=== PATIENT | female | born 1960 | race Caucasian/White ===

== ENCOUNTER → 2017-01-15 | Outpatient (CLI) | payer MEDICARE, OTHER ==
--- NOTE | 2017-01-15 16:36 | MR ---
EXAMINATION TYPE: MR brain wo con DATE OF EXAM: 01/15/2017 4:14 PM COMPARISON: NONE HISTORY: Migraine headaches per order. TECHNIQUE: Multiplanar, multisequence imaging of the brain and brainstem is performed without IV cont rast. FINDINGS: Diffusion weighted images demonstrate no evidence of a recent infarct or other diffusion abnormality. There is no worrisome extra-axial fluid collection. The ventricular system and cisternal spaces are normal in size and appearance. The brain volume is age appropriate. There are some scattered foci of T2 hyperintensity seen throughout the deep and periventricular white matter. Approximately 15 scatte red are present. Largest in left parietal deep white matter measures 7 mm in long axis. Lesions are n onspecific in appearance and distribution. Midline structures demonstrate normal morphology. The craniocervical junction appears within normal limits. Normal vascular flow voids are present. Mild mucosal thickening in the frontal sinuses as wel l as anterior ethmoid sinuses is present. The globes are intact bilaterally. IMPRESSION: Mild nonspecific white matter changes may be on basis of ischemic change related to migra ine headaches, differential includes product of chronic small vessel ischemic change in patient of th is age. Other etiologies are not excluded
== END | disposition home or self-care (01) ==
LOC: RADMRIMAIN 15:23
PROVIDERS: ATTEND Psychiatry & Neurology Neurology
DX: G43.009 Migraine without aura, not intractable, without status migrainosus (principal); R90.82 White matter disease, unspecified
CPT/HCPCS: 70551

== ENCOUNTER → 2017-01-30 | Outpatient (CLI) | payer MEDICARE, OTHER ==
--- NOTE | 2017-01-31 11:37 | MM ---
Reason for exam: screening (asymptomatic). Last mammogram was performed 1 year and 1 month ago. History: Taking other hormone for 5 months. Physical Findings: A clinical breast exam by your physician is recommended on an annual basis and results should be correlated with mammographic findings. MG 3D Screening Mammo W/Cad Bilateral CC and MLO view(s) were taken. Prior study comparison: January 09, 2016, left breast MG 3d work up w/cad LT. January 02, 2016, bilateral MG screening mammo w CAD. The breast tissue is heterogeneously dense. This may lower the sensitivity of mammography. No significant changes when compared with prior studies. ASSESSMENT: Benign, BI-RAD 2 RECOMMENDATION: Routine screening mammogram of both breasts in 1 year.
== END | disposition home or self-care (01) ==
LOC: RADMAMWWP 13:52
PROVIDERS: ATTEND Family Medicine
DX: Z12.31 Encounter for screening mammogram for malignant neoplasm of breast (principal)
CPT/HCPCS: 77063; G0202

== ENCOUNTER 2017-02-05 16:05 | Emergency (ER) | payer MEDICARE, OTHER ==
[2017-02-05 16:22] VITALS: RESP 16; TEMP 98.4
[2017-02-05] MEDS ORDERED: HYDROcodone/APAP 5-325MG 1 EACH TAB PO STA (16:56)
--- NOTE | 2017-02-05 17:06 | ED ---
General Adult HPI - General Chief complaint: Extremity Injury, Upper Stated complaint: left arm lump x 1 week Time Seen by Provider: 02/05/17 16:45 Source: patient, RN notes reviewed Mode of arrival: ambulatory Limitations: no limitations - History of Present Illness Initial comments: Patient is 56-year-old female presents to the emergency room for evaluation of lump over left arm. Patient states that she noticed a lump forming on her proximal left forearm about a week ago. Patient states today she noticed the lump has moved more towards her upper arm. Patient states that the area is painful to palpate. Patient denies recent blood work taken from the area or recent IV placed. Patient denies IV drug use. Patient denies any redness or heat from the area. Patient denies any injuries to the area. Patient denies any recent infections of her left arm. Patient denies numbness or tingling in her fingers. Patient states the pain is worse when she palpates the area or moves her elbow. Patient denies fevers or chills. Patient denies history of abscesses. Patient said she has a history fibromyalgia. Patient states she takes Percocet at home with no relief of symptoms. - Related Data Home Medications Medication Instructions Recorded Confirmed LORazepam [Ativan] 0.5 mg PO DAILY PRN 08/08/14 02/05/17 Spironolact/Hydrochlorothiazid 1 tab PO DAILY 08/29/14 02/05/17 [Aldactazide 25-25 Tablet] Cholecalciferol [Vitamin D3] 5,000 unit PO DAILY@1500 02/05/17 02/05/17 Evening [place] Oil 500 mg PO DAILY@1500 02/05/17 02/05/17 Febuxostat [Uloric] 40 mg PO DAILY 02/05/17 02/05/17 Ferrous Sulfate [Feosol] 325 mg PO DAILY@1500 02/05/17 02/05/17 Ibuprofen [Motrin] 600 mg PO TID PRN 02/05/17 02/05/17 Topiramate [Topamax] 75 mg PO HS 02/05/17 02/05/17 diphenhydrAMINE HCL [Benadryl] 25 - 50 mg PO QID PRN 02/05/17 02/05/17 oxyCODONE-APAP 10-325MG [Percocet 1 tab PO QID PRN 02/05/17 02/05/17 10-325 mg] rOPINIRole HCL [Requip] 0.5 mg PO HS 02/05/17 02/05/17 Allergies Allergy/AdvReac Type Severity Reaction Status Date / Time celecoxib [From Celebrex] Allergy Unknown Verified 02/05/17 17:07 rofecoxib [From Vioxx] Allergy Unknown Verified 02/05/17 17:07 Review of Systems ROS Statement: Those systems with pertinent positive or pertinent negative responses have been documented in the HPI. ROS Other: All systems not noted in ROS Statement are negative. Past Medical History Past Medical History: Fibromyalgia, Osteoarthritis (OA), Thyroid Disorder Additional Past Medical History / Comment(s): gout History of Any Multi-Drug Resistant Organisms: None Reported Past Surgical History: Orthopedic Surgery, Tubal Ligation Past Psychological History: No Psychological Hx Reported Smoking Status: Former smoker Past Alcohol Use History: None Reported Past Drug Use History: None Reported General Exam - General Exam Comments Initial Comments: Sitting in exam room in no acute distress. Limitations: no limitations General appearance: alert, in no apparent distress Head exam: Present: atraumatic, normocephalic, normal inspection Eye exam: Present: normal appearance ENT exam: Present: normal exam Neck exam: Present: normal inspection Respiratory exam: Present: normal lung sounds bilaterally. Absent: respiratory distress Cardiovascular Exam: Present: regular rate, normal rhythm, normal heart sounds Extremities exam: Present: normal inspection Left Upper Arm exam: Present: normal inspection Elbow exam: Present: normal inspection, full ROM, tenderness (Tenderness over the medial epicondyl) Forearm Wrist exam: Present: normal inspection Neuro motor exam: Present: wrist extension intact, thumb opposition intact, thumb IP flexion intact, thumb adduction intact, fingers 2-5 abduction intact Vascular: Present: normal capillary refill (Capillary refill less than 2 seconds ), radial pulse (2+), ulnar pulse (2+) Back exam: Present: normal inspection Neurological exam: Present: alert, oriented X3, CN II-XII intact, normal gait Psychiatric exam: Present: normal affect, normal mood Skin exam: Present: warm, dry, intact, normal color. Absent: rash Course Vital Signs 02/05/17 02/05/17 16:19 19:04 Temperature 98.4 F Pulse Rate 74 60 Respiratory 16 16 Rate Blood Pressure 134/67 127/75 O2 Sat by Pulse 99 99 Oximetry Medical Decision Making - Medical Decision Making Patient is a 56-year-old female presents to the emergency room for evaluation of left arm pain and swelling. Ultrasound ordered to rule out abscess. No findings noted. Patient also evaluated by Dr. Medrano. Patient's symptoms most likely related to tendinitis. Advised patient to continue taking her home pain medications and to follow-up with her primary care provider if symptoms aren't improving in 7-10 days. Patient states she understands everything that was discussed with her. Return parameters discussed. - Radiology Data Radiology results: report reviewed, image reviewed Disposition Clinical Impression: Left elbow tendinitis Disposition: HOME SELF-CARE Condition: Good Instructions: Tendinitis (ED) Additional Instructions: Ice on and off for 10-15 minutes for the next 24-48 hours. Take at home pain medications as needed. Please follow up with primary care provider for reevaluation if symptoms do not improve in 7-10 days.. If new symptoms develop or symptoms worsen, please return to the ER. Referrals: Fredo Pimentel MD [Primary Care Provider] - 1-2 days Time of Disposition: 19:26
--- NOTE | 2017-02-05 17:39 | US ---
EXAMINATION TYPE: US extremity nonvasc mass LT DATE OF EXAM: 02/05/2017 5:30 PM COMPARISON: NONE CLINICAL HISTORY: Patient states she can feel a palpable lump just superior to her antecubital fossa on the left arm. She noticed it x1 week ago today and it feels like it is moving up her arm. The area is painful No abnormality visualized on today's exam at the area of the patient's concern IMPRESSION: No evidence for solid or cystic mass.
[2017-02-05 19:06] VITALS: BP 127/75; PULSE 60
== END 2017-02-05 19:38 | disposition home or self-care (01) ==
LOC: EC 16:05
DX: M77.9 Enthesopathy, unspecified (principal); M79.7 Fibromyalgia; M19.90 Unspecified osteoarthritis, unspecified site; M10.9 Gout, unspecified; Z87.891 Personal history of nicotine dependence; Z79.899 Other long term (current) drug therapy; Z88.8 Allergy status to other drugs, medicaments and biological substances
CPT/HCPCS: 99283

== ENCOUNTER → 2018-01-18 | Outpatient (CLI) | payer MEDICARE, OTHER ==
--- NOTE | 2018-01-19 13:54 | MR ---
EXAMINATION TYPE: MR brain wo con DATE OF EXAM: 01/18/2018 COMPARISON: 01/15/2017 HISTORY: Migraine without aura, not intractable TECHNIQUE: Multiplanar, multisequence images of the brain and brainstem is performed without intravenous contras t. FINDINGS: Diffusion weighted images demonstrate no evidence of a recent infarct or other diffusion ab normality. There is been minimal increase in number of white matter foci, approximately 22 as oppose d to 15 on the prior exam of 2017. The largest white matter change in the left parietal lobe again me asures 7 mm. There is no extra-axial fluid collection or significant white matter signal abnormality. The ventricular system and cisternal spaces are normal in size and appearance. The brain volume is age appropriate. Midline structures demonstrate normal morphology. The craniocervical junction appears within normal limits. The dural venous sinuses appear patent. The globes are intact. Extraocular muscles are symmet donny. Again there is mild paranasal sinus mucosal thickening with mild mucosal thickening in the front al sinus and ethmoid sinuses. Remaining paranasal sinuses and mastoid air cells are well aerated. Matthew or intracranial flow voids are maintained. IMPRESSION: 1. Mild increase in number of nonspecific white matter foci. Again these could relate to chronic micr oangiopathy, migraine headaches, vasculitis or less likely demyelinating disease. 2. Persistent mild paranasal sinus disease.
== END | disposition home or self-care (01) ==
LOC: RADMRIMAIN 13:51
PROVIDERS: ATTEND Psychiatry & Neurology Neurology
DX: G43.909 Migraine, unspecified, not intractable, without status migrainosus (principal); R90.82 White matter disease, unspecified
CPT/HCPCS: 70551

== ENCOUNTER → 2018-02-24 | Outpatient (CLI) | payer MEDICARE, OTHER ==
--- NOTE | 2018-02-26 08:48 | MM ---
Reason for exam: screening (asymptomatic). Last mammogram was performed 1 year and 1 month ago. History: Taking other hormone for 5 months. Physical Findings: A clinical breast exam by your physician is recommended on an annual basis and results should be correlated with mammographic findings. MG 3D Screening Mammo W/Cad Bilateral CC and MLO view(s) were taken. Prior study comparison: January 30, 2017, bilateral MG 3d screening mammo w/cad. January 09, 2016, left breast MG 3d work up w/cad LT. The breast tissue is heterogeneously dense. This may lower the sensitivity of mammography. No significant changes when compared with prior studies. ASSESSMENT: Benign, BI-RAD 2 RECOMMENDATION: Routine screening mammogram of both breasts in 1 year.
== END | disposition home or self-care (01) ==
LOC: RADMAMWWP 13:58
PROVIDERS: ATTEND Family Medicine
DX: Z12.31 Encounter for screening mammogram for malignant neoplasm of breast (principal)
CPT/HCPCS: 77063; 77067

== ENCOUNTER 2018-03-04 14:53 | Emergency (ER) | payer MEDICARE, OTHER ==
[2018-03-04 15:13] VITALS: RESP 18
--- NOTE | 2018-03-04 17:48 | ED ---
Fall HPI - General Chief Complaint: Fall Stated Complaint: fall Time Seen by Provider: 03/04/18 17:02 Source: patient Mode of arrival: ambulatory - History of Present Illness Initial Comments: This is a pleasant 57-year-old female presents emergency department complaining of multiple body aches and painful areas. Patient states she fell at home as ago and injured her right thigh area. Patient states she also has somehow inflamed. Neck: Neck. Patient suffers from chronic neck and low back pain. Patient denies any head injury or loss of consciousness. Patient does have widespread osteoarthritis and chronic pain. Patient complaining of right hand pain as well. Patient is able to ambulate without difficulty. Patient denies any chest pain or shortness of breath. No fever or chills, abdominal pain. No problems with vomiting urination. No symptoms of saddle anesthesia. No night sweats or fevers. Patient also complaining of generalized body aches and myalgias - Related Data Home Medications Medication Instructions Recorded Confirmed LORazepam [Ativan] 0.5 mg PO DAILY PRN 08/08/14 03/04/18 Spironolact/Hydrochlorothiazid 1 tab PO DAILY 08/29/14 03/04/18 [Aldactazide 25-25 Tablet] Cholecalciferol [Vitamin D3] 5,000 unit PO DAILY 02/05/17 03/04/18 Febuxostat [Uloric] 40 mg PO DAILY 02/05/17 03/04/18 Ibuprofen [Motrin] 600 mg PO TID PRN 02/05/17 03/04/18 Topiramate [Topamax] 75 mg PO HS 02/05/17 03/04/18 diphenhydrAMINE HCL [Benadryl] 25 - 50 mg PO QID PRN 02/05/17 03/04/18 oxyCODONE-APAP 10-325MG [Percocet 1 tab PO QID PRN 02/05/17 03/04/18 10-325 mg] rOPINIRole HCL [Requip] 0.5 mg PO HS 02/05/17 03/04/18 Iron 160mg Sr 160 mg PO DAILY 03/04/18 03/04/18 Levothyroxine Sodium [Synthroid] 88 mcg PO DAILY 03/04/18 03/04/18 Previous Rx's Medication Instructions Recorded methylPREDNISolone Dose Pack 4 mg PO DIRECTED #21 package 03/04/18 [Medrol Dose Pack] Allergies Allergy/AdvReac Type Severity Reaction Status Date / Time celecoxib [From Celebrex] Allergy Unknown Verified 03/04/18 17:16 rofecoxib [From Vioxx] Allergy Unknown Verified 03/04/18 17:16 Review of Systems ROS Statement: Those systems with pertinent positive or pertinent negative responses have been documented in the HPI. ROS Other: All systems not noted in ROS Statement are negative. Past Medical History Past Medical History: Fibromyalgia, Osteoarthritis (OA), Thyroid Disorder Additional Past Medical History / Comment(s): gout History of Any Multi-Drug Resistant Organisms: None Reported Past Surgical History: Orthopedic Surgery, Tubal Ligation Past Psychological History: No Psychological Hx Reported Smoking Status: Former smoker Past Alcohol Use History: None Reported Past Drug Use History: None Reported Additional History: Reviewed General Exam - General Exam Comments Initial Comments: Healthy-appearing 57-year-old female in no significant distress Limitations: no limitations General appearance: alert, in no apparent distress Eye exam: Present: normal appearance, EOMI ENT exam: Present: normal oropharynx Neck exam: Present: normal inspection, tenderness (Mild cervical paraspinal tenderness). Absent: meningismus, lymphadenopathy Respiratory exam: Present: normal lung sounds bilaterally. Absent: respiratory distress, wheezes, rales, rhonchi, stridor Cardiovascular Exam: Present: regular rate, normal rhythm, normal heart sounds. Absent: systolic murmur, diastolic murmur, rubs, gallop, clicks GI/Abdominal exam: Present: soft, normal bowel sounds. Absent: distended, tenderness, guarding, rebound, rigid Extremities exam: Present: full ROM, tenderness, normal capillary refill, other (Patient has a small area of bruising to the lateral aspect right thigh. No lower leg edema. Distal pulses are intact. No pedal edema). Absent: normal inspection Back exam: Present: normal inspection Neurological exam: Present: alert, oriented X3, CN II-XII intact Psychiatric exam: Present: normal affect, normal mood Skin exam: Present: warm, dry, intact, normal color. Absent: rash Course Vital Signs 03/04/18 15:12 Temperature 98.0 F Pulse Rate 77 Respiratory 18 Rate Blood Pressure 130/70 O2 Sat by Pulse 99 Oximetry Medical Decision Making - Medical Decision Making This patient fell 2 days ago at home. Patient has no evidence of acute fracture on plain film x-rays of the pelvis, right hand, and cervical spine as read by radiology. Patient able to and really without difficulty. Patient is on pain medications. I will give the patient a Medrol Dosepak as the patient appears to have multiple joint arthralgia. Patient will need to follow-up with her regular physician. Patient stable.Return to the ER at once if the symptoms worsen or problems or difficulties arise. Return and follow-up parameters discussed - Lab Data Result diagrams: 03/04/18 18:17 03/04/18 18:17 Lab Results 03/04/18 03/04/18 Range/Units 18:17 18:17 WBC 9.3 (3.8-10.6) k/uL RBC 5.06 (3.80-5.40) m/uL Hgb 14.5 (11.4-16.0) gm/dL Hct 44.8 (34.0-46.0) % MCV 88.4 (80.0-100.0) fL MCH 28.6 (25.0-35.0) pg MCHC 32.3 (31.0-37.0) g/dL RDW 12.9 (11.5-15.5) % Plt Count 344 (150-450) k/uL Neutrophils % 63 % Lymphocytes % 26 % Monocytes % 4 % Eosinophils % 5 % Basophils % 1 % Neutrophils # 5.9 (1.3-7.7) k/uL Lymphocytes # 2.5 (1.0-4.8) k/uL Monocytes # 0.4 (0-1.0) k/uL Eosinophils # 0.5 (0-0.7) k/uL Basophils # 0.1 (0-0.2) k/uL Sodium 142 (137-145) mmol/L Potassium 4.0 (3.5-5.1) mmol/L Chloride 104 (98-107) mmol/L Carbon Dioxide 26 (22-30) mmol/L Anion Gap 12 mmol/L BUN 14 (7-17) mg/dL Creatinine 0.83 (0.52-1.04) mg/dL Est GFR (CKD-EPI)AfAm >90 (>60 ml/min/1.73 sqM) Est GFR (CKD-EPI)NonAf 80 (>60 ml/min/1.73 sqM) Glucose 90 (74-99) mg/dL Calcium 10.1 (8.4-10.2) mg/dL Creatine Kinase 59 (30-135) U/L Disposition Clinical Impression: Contusion of right hand, initial encounter, Contusion of right thigh, initial encounter, Cervical strain, acute, Fall Disposition: HOME SELF-CARE Condition: Good Instructions: Acute Neck Pain (ED), Contusion in Adults (ED) Additional Instructions: Return to the ER at once if the symptoms worsen or problems or difficulties arise. Prescriptions: methylPREDNISolone Dose Pack [Medrol Dose Pack] 4 mg PO DIRECTED #21 package Referrals: Fredo Pimentel MD [Primary Care Provider] - 1-2 days Time of Disposition: 19:06
--- NOTE | 2018-03-04 18:28 | XR ---
EXAMINATION TYPE: XR pelvis AP view DATE OF EXAM: 03/04/2018 COMPARISON: NONE HISTORY: Hand pain TECHNIQUE: Single view FINDINGS: Pelvic ring is intact. Proximal femurs and hip joints are intact. Sacroiliac joints appear normal. There are phleboliths in the pelvis. IMPRESSION: Negative pelvis exam.
--- NOTE | 2018-03-04 18:29 | XR ---
EXAMINATION TYPE: XR hand complete RT DATE OF EXAM: 03/04/2018 COMPARISON: NONE HISTORY: Hand pain TECHNIQUE: 3 views FINDINGS: Metacarpals appear intact. I see no fracture nor dislocation. There is mild spurring at the first carpometacarpal joint. There is mild spurring at the DIP joints. There are no erosions. IMPRESSION: Mild osteoarthritic changes. No fracture.
[2018-03-04 18:30] LABS: Basophils # (A) 0.1 k/uL (0-0.2); Basophils % (A) 1 %; Eosinophils # (A) 0.5 k/uL (0-0.7); Eosinophils % (A) 5 %; HCT 44.8 % (34.0-46.0); HGB 14.5 gm/dL (11.4-16.0); Lymphocytes # (A) 2.5 k/uL (1.0-4.8); Lymphocytes % (A) 26 %; MCH 28.6 pg (25.0-35.0); MCHC 32.3 g/dL (31.0-37.0); MCV 88.4 fL (80.0-100.0); Mean Platelet Volume 7.2; Monocytes # (A) 0.4 k/uL (0-1.0); Monocytes % (A) 4 %; Neutrophils # (A) 5.9 k/uL (1.3-7.7); Neutrophils % (A) 63 %; Platelet Count 344 k/uL (150-450); RBC 5.06 m/uL (3.80-5.40); RDW 12.9 % (11.5-15.5); WBC 9.3 k/uL (3.8-10.6)
--- NOTE | 2018-03-04 18:30 | XR ---
EXAMINATION TYPE: XR cervical spine limited DATE OF EXAM: 03/04/2018 COMPARISON: NONE HISTORY: Neck pain TECHNIQUE: 3 views FINDINGS: Vertebra have normal alignment. There is narrowing and spurring at C5-6 C6-7. Posterior jorge ments are intact. Atlantoaxial facet joint is normal. There are no cervical ribs. IMPRESSION: Spondylotic changes at C5-6 C6-7. No fracture seen.
[2018-03-04 18:40] LABS: Anion Gap 12 mmol/L; Blood Urea Nitrogen 14 mg/dL (7-17); Calcium 10.1 mg/dL (8.4-10.2); Carbon Dioxide 26 mmol/L (22-30); Chloride 104 mmol/L (98-107); Creatine Kinase 59 U/L (30-135); Glucose 90 mg/dL (74-99); Sodium 142 mmol/L (137-145)
[2018-03-04 19:35] VITALS: BP 108/66; PULSE 57; TEMP 96.9
== END 2018-03-04 19:45 | disposition home or self-care (01) ==
LOC: EC 14:53
DX: S16.1XXA Strain of muscle, fascia and tendon at neck level, initial encounter (principal); S60.221A Contusion of right hand, initial encounter; S70.11XA Contusion of right thigh, initial encounter; E07.9 Disorder of thyroid, unspecified; Z87.891 Personal history of nicotine dependence; Z79.899 Other long term (current) drug therapy; Z88.6 Allergy status to analgesic agent; Z88.8 Allergy status to other drugs, medicaments and biological substances; W01.0XXA Fall on same level from slipping, tripping and stumbling without subsequent striking against object, initial encounter
CPT/HCPCS: 36415; 72040; 72170; 80048; 82550; 85025; 99283

== ENCOUNTER 2018-04-07 09:28 | Day surgery (SDC) | payer MEDICARE, OTHER ==
[2018-04-04 12:36] VITALS: BMI 29.2
[~2018-04-07 09:28] MED LIST: LACTATED RINGERS 1,000 ML IV SCH
[2018-04-07 10:06] VITALS: TEMP 97.9
[2018-04-07] MEDS ORDERED: PROPOFOL 10 MG/ML 20 ML VIAL IV ONE (10:28)
[2018-04-07] MEDS ORDERED: fentaNYL (PF) 50 MCG/ML 2 ML AMP ONE (10:28)
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
[2018-04-07 10:54] VITALS: RESP 16
[2018-04-07 11:27] VITALS: BP 110/67; PULSE 59
== END 2018-04-07 11:55 | disposition home or self-care (01) ==
LOC: ORWHC2ENDO 09:28
PROVIDERS: ATTEND Surgery
DX: Z12.11 Encounter for screening for malignant neoplasm of colon (principal); D64.9 Anemia, unspecified; E07.9 Disorder of thyroid, unspecified; I10 Essential (primary) hypertension; M10.9 Gout, unspecified; M19.90 Unspecified osteoarthritis, unspecified site; Z87.891 Personal history of nicotine dependence; M79.7 Fibromyalgia; F41.9 Anxiety disorder, unspecified; F32.9 Major depressive disorder, single episode, unspecified; Z79.899 Other long term (current) drug therapy; Z88.6 Allergy status to analgesic agent; Z88.8 Allergy status to other drugs, medicaments and biological substances
CPT/HCPCS: J3010; J2704; G0121

== ENCOUNTER → 2018-04-16 | Outpatient (CLI) | payer MEDICARE, OTHER ==
--- NOTE | 2018-04-16 11:49 | MR ---
EXAMINATION TYPE: MR lumbar spine wo con DATE OF EXAM: 04/16/2018 COMPARISON: 12/08/2014 HISTORY: Intervertebral disc displacement, lumbar TECHNIQUE: Multiplanar, multisequence images of the lumbar spine were acquired. FINDINGS: There is a grade 1 anterolisthesis of L4 on L5. Vertebral body hemangiomas that are T1 hype rintense and T2 hyperintense are seen of S1 and L1. Remainder of the visualized thoracolumbar spine d isplays normal bone marrow signal. Multilevel disc desiccation is seen. Conus medullaris is unremarka ble terminating at the L1-L2 interspace. L1-L2: Minimal disc desiccation. No herniation, protrusion or disc bulging. No canal stenosis is pr esent. Foramina are patent bilaterally. L2-L3: There is a very small broad-based disc bulge without neural foraminal narrowing or spinal tacho l stenosis. Mild disc desiccation is seen. L3-L4: There is a broad-based disc bulge and mild facet arthropathy without spinal canal stenosis or neural foraminal narrowing. L4-L5: There is disc uncovering and a broad-based disc bulge without focality. Very small annular tea r is seen centrally. Very mild neural foraminal narrowing is present bilaterally. No nerve impingemen t. L5-S1: There is a small broad-based disc bulge without focality. No significant neural foraminal narr owing or spinal canal stenosis. IMPRESSION: 1. Mild multilevel degenerative disc disease without focal disc herniation or spinal canal stenosis. There is minimal neural foraminal narrowing at L4-L5 bilaterally. 2. Grade 1 anterolisthesis of L4 on L5 without spinal canal stenosis or bone marrow edema.
== END | disposition home or self-care (01) ==
LOC: RADMRIMAIN 11:01
PROVIDERS: ATTEND Psychiatry & Neurology Neurology
DX: M99.73 Connective tissue and disc stenosis of intervertebral foramina of lumbar region (principal); M43.16 Spondylolisthesis, lumbar region; M51.36 Other intervertebral disc degeneration, lumbar region
CPT/HCPCS: 72148

== ENCOUNTER → 2018-11-11 | Outpatient (CLI) | payer MEDICARE, OTHER ==
--- NOTE | 2018-11-11 22:46 | MR ---
MRI CERVICAL SPINE: CLINICAL HISTORY: Neck pain per order. Headache with neck pain for over 10 years causing pain or weak ness into both arms and fingers per patient. TECHNIQUE: Multiplanar, multisequence imaging of the cervical spine is performed without IV contrast. COMPARISON: Cervical spine x-ray March 04, 2018. FINDINGS: Coronal images show dextroconvex scoliotic positioning centered in the upper to mid thoraci c spine. Sagittal images of the cervical spine show the craniocervical junction to appear within norm al limits. The cervical and upper thoracic spinal cord is normal in course, caliber, and signal. The re is grade 1 retrolisthesis of C5 on C6 and C6 on C7. There is mild disc space narrowing C5-C6 leve l and moderate disc space narrowing C6-C7 level. Multilevel posterior disc herniation C3-C4 through a nd C7-T1 level are noted on sagittal images. The vertebral body heights are normal. Some heterogeneou s endplate changes C6-C7 level are noted. Axial images at C2-C3 level show tiny left paracentral disc protrusion minimally effacing the anterio r thecal sac axial image 44, bilateral neuroforamina are patent. Axial images at C3-C4 level show posterior spur disc complex effacing anterior thecal sac with uncove rtebral facet show changes contributing to mild to moderate right-sided neural foraminal narrowing. L eft-sided neural foramen is patent. Axial images at C4-C5 level shows broad-based posterior disc protrusion and uncovertebral facet degen erative changes bilaterally, there is effacement of the anterior thecal sac with mild to moderate lef t-sided neural foraminal narrowing. Right-sided neural foramen is patent. Axial images at C5-C6 level show spondylolisthesis with broad-based left paracentral/foraminal spur d isc complex, there is effacement of the anterior thecal sac with advanced left and mild to moderate r ight-sided neural foraminal narrowing. Axial images at the C6-C7 level shows spondylolisthesis with broad-based posterior disc protrusion, t here is effacement of anterior thecal sac, there is advanced right and moderate to advanced left-side d neural foraminal narrowing noted. Axial images at the C7-T1 level show broad disc protrusion mildly facing anterior thecal sac, bilater al neural foramina are patent. IMPRESSION: Multilevel degenerative changes in the cervical spine most prominent at C5-C6 and C6-C7 l evel as detailed above.
== END | disposition home or self-care (01) ==
LOC: RADMRIMAIN 14:48
PROVIDERS: ATTEND Psychiatry & Neurology Neurology
DX: M47.812 Spondylosis without myelopathy or radiculopathy, cervical region (principal)
CPT/HCPCS: 72141

== ENCOUNTER 2019-02-23 19:09 | Emergency (ER) | payer MEDICARE, OTHER ==
[2019-02-23 19:20] VITALS: TEMP 98.3
[2019-02-23 19:41] LABS: Appearance,Urine Clear (Clear); Bilirubin,Urine Negative (Negative); Blood,Urine Negative (Negative); Color,Urine Light Yellow; Glucose,Urine (UA) Negative (Negative); Ketones,Urine Negative (Negative); Leukocyte Esterase,Urine Negative (Negative); Nitrite,Urine Negative (Negative); PH, Urine 6.5 (5.0-8.0); Protein,Urine Negative (Negative); Specific Gravity,Urine 1.003 (1.001-1.035); Urobilinogen,Urine <2.0 mg/dL (<2.0)
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
[2019-02-23 20:54] LABS: ALT 46 U/L (9-52); AST 27 U/L (14-36); Albumin 4.4 g/dL (3.5-5.0); Alkaline Phosphatase 73 U/L (38-126); Amylase 81 U/L (30-110); Anion Gap 11 mmol/L; Blood Urea Nitrogen 14 mg/dL (7-17); Calcium 9.9 mg/dL (8.4-10.2); Carbon Dioxide 23 mmol/L (22-30); Chloride 107 mmol/L (98-107); Glucose 78 mg/dL (74-99); Lipase 72 U/L (23-300); Potassium 3.5 mmol/L (3.5-5.1); Sodium 141 mmol/L (137-145); Total Bilirubin 0.6 mg/dL (0.2-1.3); Total Protein 7.4 g/dL (6.3-8.2)
[2019-02-23 21:18] LABS: Basophils # (A) 0.1 k/uL (0-0.2); Basophils % (A) 1 %; Eosinophils # (A) 0.3 k/uL (0-0.7); Eosinophils % (A) 3 %; HCT 42.6 % (34.0-46.0); HGB 14.1 gm/dL (11.4-16.0); Lymphocytes # (A) 2.3 k/uL (1.0-4.8); Lymphocytes % (A) 19 %; MCH 29.4 pg (25.0-35.0); MCHC 33.1 g/dL (31.0-37.0); MCV 88.8 fL (80.0-100.0); Mean Platelet Volume 7.4; Monocytes # (A) 0.5 k/uL (0-1.0); Monocytes % (A) 4 %; Neutrophils # (A) 8.5 k/uL (1.3-7.7); Neutrophils % (A) 72 %; Platelet Count 468 k/uL (150-450); RBC 4.79 m/uL (3.80-5.40); RDW 13.8 % (11.5-15.5); WBC 11.8 k/uL (3.8-10.6)
--- NOTE | 2019-02-23 21:40 | US ---
EXAMINATION TYPE: US gallbladder DATE OF EXAM: 02/23/2019 COMPARISON: NONE CLINICAL HISTORY: Pain. RUQ pain EXAM MEASUREMENTS: Liver Length: 17.4 cm Gallbladder Wall: 0.3 cm CBD: 0.4 cm Right Kidney: 10.1 x 3.3 x 4.5 cm Pancreas: Tail obscured by overlying bowel gas Liver: wnl Gallbladder: wnl Evidence for sonographic Christine's sign: No CBD: wnl Right Kidney: wnl Heterogeneous hyperechoic liver is seen. Evaluation for focal masses is suboptimal due to heterogenei ty. Gallbladder is seen without shadowing mobile gallstones. Visualized pancreas is slightly heteroge neous. Portions are suboptimally evaluated due to shadowing from overlying bowel gas. IMPRESSION: Suspect diffuse fatty infiltration of liver. No shadowing mobile gallstones or ultrasonog raphic evidence for acute cholecystitis.
--- NOTE | 2019-02-23 21:43 | XR ---
EXAMINATION TYPE: XR KUB DATE OF EXAM: 02/23/2019 9:29 PM CLINICAL HISTORY: Right upper quadrant pain. TECHNIQUE: Two Upright KUB images of the abdomen are obtained. COMPARISON: None. FINDINGS: Scattered gas is seen in non-distended stomach and small bowel loops. Gas and fecal materia l is seen in non-distended colon. There is left-sided pelvic phlebolith. Kfdh-gv-mcehhafm axial joint space loss both hips is present. No pneumoperitoneum is seen. IMPRESSION: Overall nonobstructive bowel gas pattern.
[2019-02-23] MEDS ORDERED: DICYCLOMINE 20 MG TAB PO STA (22:19)
[2019-02-23] MEDS ORDERED: PEG 3350-NA SULF,BICARB,CL/KCL 4,000 ML BOTTLE PO ONE (22:30)
[2019-02-23 22:39] VITALS: BP 119/71; PULSE 67; RESP 16
== END 2019-02-23 22:40 | disposition home or self-care (01) ==
LOC: EC 19:09
DX: R10.11 Right upper quadrant pain (principal); R11.0 Nausea; M54.9 Dorsalgia, unspecified; M25.511 Pain in right shoulder; M79.7 Fibromyalgia; M10.9 Gout, unspecified; E07.9 Disorder of thyroid, unspecified; D64.9 Anemia, unspecified; Z87.891 Personal history of nicotine dependence; Z88.6 Allergy status to analgesic agent; Z88.8 Allergy status to other drugs, medicaments and biological substances; Z91.011 Allergy to milk products; Z91.018 Allergy to other foods; Z79.890 Hormone replacement therapy; Z79.899 Other long term (current) drug therapy; Z98.890 Other specified postprocedural states
CPT/HCPCS: 36415; 74018; 76705; 80053; 81003; 82150; 83690; 85025; 99284

== ENCOUNTER → 2019-03-03 | Outpatient (CLI) | payer MEDICARE, OTHER ==
--- NOTE | 2019-03-04 09:32 | NM ---
EXAMINATION TYPE: NM hepatobiliary w CCK DATE OF EXAM: 03/03/2019 COMPARISON: 02/23/2019 gallbladder ultrasound HISTORY: Right upper quadrant pain and nausea TECHNIQUE: After the intravenous administration of 5 mCi Tc 99m Mebrofenin hepatobiliary scintigraphy is performed. Immediate images post injection. FINDINGS: There is satisfactory initial accumulation of tracer by the liver. The gallbladder is visualized wit hin 14 minutes. The small bowel activity is noted within 8 minutes. At one hour CCK was administere d, patient was injected with 1.7 mcg of Kinevac, and gallbladder ejection fraction is calculated at 9 7 %, elevated. Therefore there is no scintigraphic evidence of cystic or common bile duct obstructio n to suggest acute cholecystitis or gallbladder dyskinesia. IMPRESSION: 1. No scintigraphic evidence of acute or chronic cholecystitis. 2. Biliary hyperkinesia with abnormally elevated ejection fraction of 97%.
== END | disposition home or self-care (01) ==
LOC: RADNMMAIN 14:49
PROVIDERS: ATTEND Family Medicine
DX: K82.8 Other specified diseases of gallbladder (principal); R10.11 Right upper quadrant pain; Z88.1 Allergy status to other antibiotic agents; Z88.6 Allergy status to analgesic agent; Z88.8 Allergy status to other drugs, medicaments and biological substances
CPT/HCPCS: 78227; A9537; J2805

== ENCOUNTER → 2019-03-24 | Outpatient (CLI) | payer MEDICARE, OTHER ==
--- NOTE | 2019-03-25 12:16 | MM ---
Reason for exam: screening (asymptomatic). Last mammogram was performed 1 year and 1 month ago. History: Patient is postmenopausal. Taking other hormone for 5 months. Physical Findings: A clinical breast exam by your physician is recommended on an annual basis and results should be correlated with mammographic findings. MG 3D Screening Mammo W/Cad Bilateral CC and MLO view(s) were taken. Prior study comparison: February 24, 2018, bilateral MG 3d screening mammo w/cad. January 30, 2017, bilateral MG 3d screening mammo w/cad. The breast tissue is heterogeneously dense. This may lower the sensitivity of mammography. Increasing nodule upper inner left breast middle third position. This finding is changed when compared with previous exams. ASSESSMENT: Incomplete: need additional imaging evaluation, BI-RAD 0 RECOMMENDATION: Special view mammogram of the left breast. If lesion persists on supplemental views, image directed ultrasound is recommended. [facility] will attempt to contact patient to return for supplemental views and ultrasound if indicated.
== END ==
LOC: RADMAMWWP 15:07
PROVIDERS: ATTEND Family Medicine
DX: Z12.31 Encounter for screening mammogram for malignant neoplasm of breast (principal)
CPT/HCPCS: 77063; 77067

== ENCOUNTER → 2019-03-27 | Outpatient (CLI) | payer MEDICARE, OTHER ==
--- NOTE | 2019-03-30 08:02 | MM ---
Reason for exam: additional evaluation requested from abnormal screening. Last mammogram was performed less than 1 month ago. History: Patient is postmenopausal. Taking other hormone for 5 months. Physical Findings: Nurse did not find any significant physical abnormalities on exam. MG 3D Work Up W/Cad LT Spot compression CC, spot compression MLO, and LM view(s) were taken of the left breast. Prior study comparison: March 24, 2019, bilateral MG 3d screening mammo w/cad. February 24, 2018, bilateral MG 3d screening mammo w/cad. The breast tissue is heterogeneously dense. This may lower the sensitivity of mammography. There is no discrete abnormality. These results were verbally communicated with the patient and result sheet given to the patient on 03/27/19. ASSESSMENT: Probably benign, BI-RAD 3 RECOMMENDATION: Follow-up diagnostic mammogram of the left breast in 6 months.
== END | disposition home or self-care (01) ==
LOC: RADMAMWWP 15:03
PROVIDERS: ATTEND Family Medicine
DX: R92.8 Other abnormal and inconclusive findings on diagnostic imaging of breast (principal)
CPT/HCPCS: 77065; G0279; 77061

== ENCOUNTER 2019-04-09 11:53 | Day surgery (SDC) | payer MEDICARE, OTHER ==
[2019-04-06 11:45] VITALS: BMI 31.2
[~2019-04-09 11:53] MED LIST changes: +DEXAMETHASONE SOD PHOSPHATE 10 MG/ML 1 ML VIAL IV ONE; +HEPARIN SODIUM,PORCINE 5,000 UNIT/ML 1 ML VIAL SQ ONE; +LIDOCAINE 1% 20 ML VIAL (10MG/ML) FOR IV START INTRADERMA PRN; +ONDANSETRON 4 MG/2 ML VIAL IVP ONE; +SCOPOLAMINE 1.5MG/72HR PATCH TRANSDERM ONE; +ceFAZolin IN SWFI 2 GM/20 ML SYRINGE IVP ONE
[2019-04-09] MEDS ORDERED: PHENYLEPHRINE-0.9% NACL SYG 1 MG/10 ML SYRINGE ONE (12:57)
[2019-04-09] MEDS ORDERED: fentaNYL (PF) 50 MCG/ML 2 ML AMP ONE (12:57)
[2019-04-09] MEDS ORDERED: NEOSTIGMINE 1 MG/ML 10 ML VIAL ONE (12:57)
[2019-04-09] MEDS ORDERED: KETOROLAC 30 MG/ML 1 ML VIAL ONE (12:57)
[2019-04-09] MEDS ORDERED: HYDROmorphone (PF) 1 MG/ML ONE (12:57)
[2019-04-09] MEDS ORDERED: GLYCOPYRROLATE 0.2 MG/ML 2 ML VIAL ONE (12:57)
[2019-04-09] MEDS ORDERED: ROCURONIUM BROMIDE 10 MG/ML 10 ML VIAL IV ONE (12:57)
[2019-04-09] MEDS ORDERED: MIDAZOLAM 2 MG/2 ML VIAL ONE (12:57)
[2019-04-09] MEDS ORDERED: LIDOCAINE 1% INJ 10MG/ML (20 ML MDV) ONE (12:57)
[2019-04-09] MEDS ORDERED: SUCCINYLCHOLINE CHLORIDE 100 MG/5 ML SYR IV ONE (12:57)
[2019-04-09] MEDS ORDERED: PROPOFOL 10 MG/ML 20 ML VIAL IV ONE (12:57)
[2019-04-09] MEDS ORDERED: BUPIVACAINE-EPI 0.5%-1:200,000 10 ML VIAL SQ ONE ×2 (13:19)
--- NOTE | 2019-04-09 14:04 | P.OP ---
Date of Procedure: 04/09/19 Preoperative Diagnosis: Biliary colic Postoperative Diagnosis: Biliary colic Procedure(s) Performed: Laparoscopic cholecystectomy Anesthesia: EVARISTO Surgeon: Davion Hyman Pathology: other (Gallbladder and contents) Condition: stable Disposition: same day Indications for Procedure: 58-year-old female presented with right upper quadrant pain and was found to have biliary colic. Secondary to this, plan was made for laparoscopic cholecystectomy. The patient was explained the risks, benefits and alternatives to the procedure and did provide consent prior to attending the operating suite. Operative Findings: Gallbladder with multiple omental adhesions. Description of Procedure: The patient was brought into the endoscopy suite and placed in supine position on the operating table. Sedation was provided by anesthesia and the patient underwent endotracheal intubation. The patient was then prepped and draped in regular sterile fashion. A infraumbilical incision was made dissection was carried to the fascia the fascia was incised and a 11 mm trocar was then placed into the abdomen. Pneumoperitoneum was then administered. The patient was then placed in appropriate positioning. 35 mm ports were placed. One was placed in the subxiphoid location and 2 were placed in the right upper quadrant. The gallbladder was then grasped and was noted to have multiple omental adhesions. These were dissected off. The gallbladder was then retracted appropriately. The infundibulum was then grasped and retracted laterally. The cystic duct and cystic artery then came into view. Dissection was made to skeletonize both the cystic duct and the cystic artery. On the cystic duct, 2 clips were placed proximally one was placed distally and the cystic duct was ligated. On the cystic artery, 2 clips were placed proximally one was placed distally and the cystic artery was ligated. The gallbladder was then dissected from the gallbladder fossa on the liver bed with electrocautery. Hemostasis was maintained. The gallbladder was then placed in an Endo Catch bag and removed from the abdomen. Irrigation was then placed in the right upper quadrant. Hemostasis was noted to be maintained. Pneumoperitoneum was then released and all ports removed from the abdomen. The infraumbilical fascial incision was closed with multiple 0 Vicryl suture. All skin incisions were then closed with 4-0 Vicryl suture. Sterile dressing was applied. The patient was awakened in the operating suite and taken to postanesthesia care unit in stable condition.
[2019-04-09 14:14] VITALS: TEMP 97.1
[2019-04-09] MEDS: HYDROmorphone 0.5 MG/0.5 ML SYRINGE IVP PRN ×2 (14:30→14:35)
[2019-04-09 14:54] VITALS: RESP 16
[2019-04-09] MEDS ORDERED: LACTATED RINGERS 1,000 ML IV ONE (14:55)
[2019-04-09 16:16] VITALS: BP 123/67; PULSE 60
== END 2019-04-09 16:21 | disposition home or self-care (01) ==
LOC: OR 11:53
PROVIDERS: ATTEND Surgery
DX: K81.1 Chronic cholecystitis (principal); K66.0 Peritoneal adhesions (postprocedural) (postinfection); D64.9 Anemia, unspecified; M19.90 Unspecified osteoarthritis, unspecified site; F32.9 Major depressive disorder, single episode, unspecified; K21.9 Gastro-esophageal reflux disease without esophagitis; G43.909 Migraine, unspecified, not intractable, without status migrainosus; E03.9 Hypothyroidism, unspecified; M10.9 Gout, unspecified; Z80.41 Family history of malignant neoplasm of ovary; Z79.890 Hormone replacement therapy; Z79.891 Long term (current) use of opiate analgesic; Z79.1 Long term (current) use of non-steroidal anti-inflammatories (NSAID); Z79.899 Other long term (current) drug therapy; Z91.011 Allergy to milk products; Z88.8 Allergy status to other drugs, medicaments and biological substances; Z91.018 Allergy to other foods
CPT/HCPCS: 81025; 88304; 84132; 47562; J2250; J1644; J1100; J2710; J2405; J2001; J3010; J1885; J1170 ×2; J2370; J0330; J2704; J0690

== ENCOUNTER → 2019-10-07 | Outpatient (CLI) | payer MEDICARE, OTHER ==
--- NOTE | 2019-10-08 07:38 | MM ---
Reason for exam: follow-up at short interval from prior study. Last mammogram was performed 6 months ago. History: Patient is postmenopausal. Taking other hormone for 5 months. Physical Findings: Nurse did not find any significant physical abnormalities on exam. MG 3D Diag Mammo W/Cad LT CC and MLO view(s) were taken of the left breast. Prior study comparison: March 27, 2019, left breast MG 3d work up w/cad LT. March 24, 2019, bilateral MG 3d screening mammo w/cad. February 24, 2018, bilateral MG 3d screening mammo w/cad. The breast tissue is heterogeneously dense. This may lower the sensitivity of mammography. The previously seen abnormality resolves on additional views and appears as fibroglandular tissue compatible with summation. These results were verbally communicated with the patient and result sheet given to the patient on 10/07/19. ASSESSMENT: Benign, BI-RAD 2 RECOMMENDATION: Return to routine screening mammogram schedule for both breasts. Back on schedule.
== END ==
LOC: RADMAMWWP 15:17
PROVIDERS: ATTEND Family Medicine
DX: R92.8 Other abnormal and inconclusive findings on diagnostic imaging of breast (principal)
CPT/HCPCS: 77065; G0279; 77061

== ENCOUNTER → 2020-05-23 | Outpatient (CLI) | payer MEDICARE, OTHER ==
--- NOTE | 2020-05-23 15:31 | XR ---
EXAMINATION TYPE: XR knee complete RT DATE OF EXAM: 05/23/2020 COMPARISON: NONE HISTORY: 59-year-old female with a pain TECHNIQUE: 3 views FINDINGS: Extensor mechanism appears intact. No acute fracture, subluxation, or dislocation seen. No significan t knee joint effusion. IMPRESSION: No acute osseous abnormality seen. No knee joint effusion.
== END | disposition home or self-care (01) ==
LOC: RADXRMAIN 15:07
PROVIDERS: ATTEND Family Medicine
DX: M25.561 Pain in right knee (principal)

== ENCOUNTER → 2020-05-30 | Outpatient (CLI) | payer MEDICARE, OTHER ==
--- NOTE | 2020-06-01 13:26 | MM ---
Reason for exam: screening (asymptomatic). Last mammogram was performed 8 months ago. History: Patient is postmenopausal. Took hormonal contraceptives for 4 years. Taking other hormone for 5 months. Physical Findings: A clinical breast exam by your physician is recommended on an annual basis and results should be correlated with mammographic findings. MG 3D Screening Mammo W/Cad Bilateral CC and MLO view(s) were taken. Prior study comparison: October 07, 2019, left breast MG 3d diag mammo w/cad LT. March 27, 2019, left breast MG 3d work up w/cad LT. The breast tissue is heterogeneously dense. This may lower the sensitivity of mammography. No significant changes when compared with prior studies. ASSESSMENT: Negative, BI-RAD 1 RECOMMENDATION: Routine screening mammogram of both breasts in 1 year.
== END | disposition home or self-care (01) ==
LOC: RADMAMWWP 14:00
PROVIDERS: ATTEND Family Medicine
DX: Z12.31 Encounter for screening mammogram for malignant neoplasm of breast (principal)
CPT/HCPCS: 77063; 77067

== ENCOUNTER → 2021-01-05 | Outpatient (CLI) | payer MEDICARE, OTHER ==
--- NOTE | 2021-01-05 14:06 | XR ---
EXAMINATION TYPE: XR foot complete RT DATE OF EXAM: 01/05/2021 COMPARISON: 04/01/2012 HISTORY: Pain TECHNIQUE: Three-view right foot FINDINGS: No acute fracture or dislocation is evident. Joint spaces are preserved. Soft tissues are n ormal. Follow-up exams can be performed 7-10 days from acute trauma for continued pain IMPRESSION: 1. No acute osseous abnormality
--- NOTE | 2021-01-05 20:51 | BD ---
EXAMINATION TYPE: Axial Bone Density DATE OF EXAM: 01/05/2021 COMPARISON: NONE CLINICAL HISTORY: Height: 64 Weight: 214.7 FRAX RISK QUESTIONS: Alcohol (3 or more units per day): no Family History (Parent hip fracture): no Glucocorticoids (More than 3mos): no (Ex: prednisone, prednisolone, methylprednisolone, dexamethasone, and hydrocortisone). History of Fracture in Adulthood: yes Secondary Osteoporosis: 1. Type 1 Diabetes: no 2. Hyperthyroidism: no 3. Menopause before 45: no 4. Malnutrition: no 5. Chronic liver disease: no Rheumatoid Arthritis: no Current Tobacco Use: no RISK FACTORS HISTORY OF: Family History of Osteoporosis: yes Active: no Diet low in dairy products/other sources of calcium: yes Postmenopausal woman: age 60 Lost more than 2 inches in height since high school: no MEDICATIONS: Thyroid Medications: synthroid How Lon years Additional History: EXAM MEASUREMENTS: Bone mineral densitometry was performed using the [employer]. Bone mineral density as measured about the Lumbar spine is: ----- L1-L4(G/cm2): 1.068 T Score Values are as follows: ----- L2: -0.8 ----- L3: -0.9 ----- L4: -1.0 ----- L1-L4: -0.9 Bone mineral density : BASELINE Bone mineral density about the R hip (g/cm2): 1.031 Bone mineral density about the L hip (g/cm2): 0.963 T Score values are as follows: -----R Neck: 0.0 -----L Neck: -0.58 -----R Total: 0.5 -----L Total: 0.2 Bone mineral density : BASELINE IMPRESSION: Normal (Values between +1 and -1 indicate normal bone mass). Consider repeating this study in 5 year s or sooner if there is some new clinical indication. NOTE: T-SCORE=SD OF THE YOUNG ADULT MEAN.
== END | disposition home or self-care (01) ==
LOC: RADBDWWP 13:30
PROVIDERS: ATTEND Family Medicine
DX: Z13.820 Encounter for screening for osteoporosis (principal); M89.9 Disorder of bone, unspecified; M79.671 Pain in right foot
CPT/HCPCS: 77080

== ENCOUNTER → 2022-04-05 | Outpatient (CLI) | payer MEDICARE, OTHER ==
--- NOTE | 2022-04-06 12:39 | MM ---
Reason for exam: screening (asymptomatic). Last mammogram was performed 1 year and 10 months ago. History: Patient is postmenopausal. Took hormonal contraceptives for 4 years. Taking other hormone for 5 months. Physical Findings: A clinical breast exam by your physician is recommended on an annual basis and results should be correlated with mammographic findings. MG 3D Screening Mammo W/Cad Bilateral CC and MLO view(s) were taken. Prior study comparison: May 30, 2020, bilateral MG 3d screening mammo w/cad. October 07, 2019, left breast MG 3d diag mammo w/cad LT. The breast tissue is heterogeneously dense. This may lower the sensitivity of mammography. There is no discrete abnormality. No significant changes when compared with prior studies. ASSESSMENT: Negative, BI-RAD 1 RECOMMENDATION: Routine screening mammogram of both breasts in 1 year.
== END | disposition home or self-care (01) ==
LOC: RADMAMWWP 14:50
PROVIDERS: ATTEND Family Medicine
DX: Z12.31 Encounter for screening mammogram for malignant neoplasm of breast (principal); Z78.0 Asymptomatic menopausal state
CPT/HCPCS: 77063; 77067

== ENCOUNTER → 2023-03-27 | Outpatient (CLI) | payer MEDICARE, OTHER ==
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
== END | disposition home or self-care (01) ==
LOC: RADCTMAIN 16:38
PROVIDERS: ATTEND Family Medicine
DX: S42.402K Unspecified fracture of lower end of left humerus, subsequent encounter for fracture with nonunion (principal)

== ENCOUNTER → 2023-04-08 | Outpatient (CLI) | payer MEDICARE, OTHER ==
--- NOTE | 2023-04-09 19:20 | MR ---
EXAMINATION TYPE: MR cervical spine wo con DATE OF EXAM: 04/08/2023 COMPARISON: 11/11/2018 HISTORY: 62-year-old female LEFT SIDED NECK AND ARM PAIN NO INJURY, CHRONIC TECHNIQUE: Multiplanar, multisequence images of the cervical spine were acquired without contrast. FINDINGS: No craniocervical junction and recovery, predental space widening, or prevertebral soft tissue swelli ng. Moderate multilevel degenerative disc disease with desiccated and narrowed disks and multilevel disc osteophyte complex formation. Some heterogeneous marrow signal relating to Modic type III endplate changes. Some edematous Modic ty pe I endplate changes noted at C6-C7. Overall degenerative disc disease appears to show slight progression from 2018. Multilevel hypertrophic facet and uncovertebral joint arthropathy is also present. Degenerative grade 1 anterolisthesis C3-C4, C4-C5, and C5-C6. At C2-C3, no significant canal or foraminal stenosis. At C3-C4, facet and uncovertebral joint arthropathy with mild to moderate right neuroforaminal stenos is. Small disc osteophyte complex contributes to mild overall narrowing of the spinal canal. At C4-C5, hypertrophic facet and uncovertebral joint arthropathy. Degenerative grade 1 anterolisthesi s. Disc bulge. Slight abutment of the ventral cord with mild overall narrowing of the spinal canal. C hanges result in moderate left and naul-cf-ysshsree right neuroforaminal stenosis. At C5-C6, disc osteophyte complex with uncovertebral joint and facet arthropathy. Changes result in s evere left and mild right neuroforaminal stenosis. Moderate focal spinal canal stenosis with abutment and flattening of both the dorsal and ventral cord. At C6-C7, disc osteophyte complex and ligamentum flavum thickening results in moderate focal spinal c anal stenosis with abutment and flattening of both the dorsal and ventral cord. Additional uncoverteb ral joint and facet degenerative change contributes to moderate to severe right and moderate left kailee roforaminal stenosis. At C7-T1, uncovertebral joint and facet arthropathy. Changes contribute to moderate right greater eben n left neuroforaminal stenosis. No significant spinal canal stenosis. At T1-T2, right intraforaminal disc bulge contribute to moderate right neuroforaminal stenosis. No sp inal canal stenosis. Normal course of the thoracic spinal cord. Mild patchy artifact is present over the cervical spinal c ord. No definite myelopathic cord signal change when correlated with axial series. IMPRESSION: 1. Moderate to advanced multilevel spondylotic change. Degenerative grade 1 anterolisthesis C3-C4, C4 -C5, and C5-C6. Some edematous Modic type I endplate change at C6-C7. Overall changes show slight pro gression from 2018. 2. Changes result in moderate focal spinal canal stenosis at C5-C6 and C6/C7 where there is abutment and slight flattening of both the dorsal and ventral cord. 3. Allowing for some cord signal artifacts, no definite myelopathic cord signal change when correlate d with the axial series. 4. Variable neuroforaminal stenoses as outlined above, moderate to severe on the right at C6-C7 and s evere on the left at C5-C6.
== END | disposition home or self-care (01) ==
LOC: RADMRIMAIN 13:03
PROVIDERS: ATTEND Orthopaedic Surgery
DX: M43.12 Spondylolisthesis, cervical region (principal); M47.22 Other spondylosis with radiculopathy, cervical region; M48.02 Spinal stenosis, cervical region
CPT/HCPCS: 72141

== ENCOUNTER 2023-04-26 10:17 | Emergency (ER) | payer MEDICARE, OTHER ==
[2023-04-26 10:29] VITALS: BP 114/77; PULSE 79; RESP 22; TEMP 99.6
[2023-04-26] MEDS ORDERED: FAMOTIDINE 20 MG/2 ML VIAL IV STA (10:39)
[2023-04-26] MEDS ORDERED: SODIUM CHLORIDE 0.9% 1,000 ML IV ONE ×2 (10:39→12:28)
[2023-04-26] MEDS ORDERED: ONDANSETRON 4 MG/2 ML VIAL IVP STA (10:39)
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
[2023-04-26 11:13] LABS: Basophils % (A) 0 %; Eosinophils % (A) 1 %; HCT 43.3 % (34.0-46.0); HGB 14.7 gm/dL (11.4-16.0); Lymphocytes # (A) 0.8 k/uL (1.0-4.8); Lymphocytes % (A) 21 %; MCH 29.4 pg (25.0-35.0); MCHC 33.9 g/dL (31.0-37.0); MCV 86.5 fL (80.0-100.0); Mean Platelet Volume 8.1; Monocytes # (A) 0.2 k/uL (0-1.0); Monocytes % (A) 5 %; Neutrophils # (A) 2.6 k/uL (1.3-7.7); Neutrophils % (A) 70 %; Platelet Count 231 k/uL (150-450); RDW 13.7 % (11.5-15.5); WBC 3.7 k/uL (3.8-10.6)
[2023-04-26 11:41] LABS: Appearance,Urine Cloudy (Clear); Bacteria,Urine Rare /hpf; Bilirubin,Urine Negative (Negative); Blood,Urine Moderate (Negative); Color,Urine Yellow; Glucose,Urine (UA) Negative (Negative); Ketones,Urine Negative (Negative); Leukocyte Esterase,Urine Large (Negative); Mucus,Urine Rare /hpf; Nitrite,Urine Negative (Negative); PH, Urine 6.5 (5.0-8.0); Protein,Urine 1+ (Negative); RBC,Urine 7 /hpf (0-5); Specific Gravity,Urine 1.022 (1.001-1.035); Squamous Epithelial Cell,Urine 6 /hpf (0-4); Urobilinogen,Urine <2.0 mg/dL (<2.0); WBC,Urine 38 /hpf (0-5)
[2023-04-26 11:52] LABS: Albumin 4.3 g/dL (3.5-5.0); Calcium 8.8 mg/dL (8.4-10.2); Potassium 3.2 mmol/L (3.5-5.1); Total Bilirubin 0.8 mg/dL (0.2-1.3); Total Protein 7.2 g/dL (6.3-8.2)
--- NOTE | 2023-04-26 12:29 | XR ---
EXAMINATION TYPE: XR chest 2V DATE OF EXAM: 04/26/2023 COMPARISON: NONE HISTORY: Chest pain. TECHNIQUE: Frontal and lateral views of the chest are obtained. FINDINGS: There is no focal air space opacity, pleural effusion, or pneumothorax seen. The cardiac silhouette size is within normal limits. Scoliosis is present. IMPRESSION: No acute process.
--- NOTE | 2023-04-26 12:34 | CT ---
EXAMINATION TYPE: CT abdomen pelvis w con DATE OF EXAM: 04/26/2023 HISTORY: Generalized abdominal pain CT DLP: 1294.1mGycm Automated Exposure Control for Dose Reduction was Utilized. CONTRAST: CT scan of the abdomen and pelvis is performed without oral and with IV Contrast, patient injected wi th 100 ml mL of Isovue 300. COMPARISON: None. FINDINGS: LUNG BASES: Mild to moderate focal linear scarring in the lingula and the bilateral lower lobes along with the right middle lobe are all identified. Some patchy groundglass opacity for reference periphe ral right lower lobe axial image 13. LIVER/GB: Cholecystectomy clips are seen. Liver is diffusely low dense PANCREAS: Mild generalized fat replaced atrophy. SPLEEN: Mild splenomegaly at 14.1 cm long axis coronal image 60. ADRENALS: No significant abnormality is seen. KIDNEYS: No significant abnormality is seen. BOWEL: Small size hiatal hernia. No suspicious small or large bowel dilatation UTERUS/ADNEXA: Anteverted uterus. Calcification in the right fundus axial image 70 could reflect smal l calcified fibroid Ovaries symmetric and normal in size axial image 70. LYMPH NODES: No greater than 1cm abdominal or pelvic lymph nodes are appreciated. OSSEOUS STRUCTURES: Underlying levoconvex scoliosis. Slight grade 1 anterolisthesis L4 on L5. Some os sific fusion anterior T10-T11 level. OTHER: No significant additional abnormality is seen. IMPRESSION: No bowel obstruction. No significant acute finding is seen to account for patient's clini shante symptoms of generalized abdominal pain. Cannot exclude areas of developing acute infiltrate in th e lower lungs. Correlate clinically.
== END 2023-04-26 13:16 | disposition home or self-care (01) ==
LOC: EC 10:17
DX: U07.1 COVID-19 (principal); R10.9 Unspecified abdominal pain; E07.9 Disorder of thyroid, unspecified; F41.9 Anxiety disorder, unspecified; F32.A Depression, unspecified; Z79.890 Hormone replacement therapy; Z79.899 Other long term (current) drug therapy; Z91.011 Allergy to milk products; Z88.8 Allergy status to other drugs, medicaments and biological substances
CPT/HCPCS: 36415; 93005; 80053; 82150; 83605; 83690; 84484; 85025; 81001; 87636; 71046; 74177; 99284; 96374; 96375; 96361 ×2; J2405; Q9967

== ENCOUNTER 2023-12-02 14:36 | Emergency (ER) | payer MEDICARE, OTHER ==
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
[2023-12-02 15:37] VITALS: TEMP 98.1
[2023-12-02 16:20] LABS: Basophils # (A) 0.1 k/uL (0-0.2); Basophils % (A) 1 %; Eosinophils # (A) 0.4 k/uL (0-0.7); Eosinophils % (A) 3 %; HCT 41.5 % (34.0-46.0); HGB 13.9 gm/dL (11.4-16.0); Lymphocytes # (A) 1.7 k/uL (1.0-4.8); Lymphocytes % (A) 16 %; MCH 30.4 pg (25.0-35.0); MCHC 33.4 g/dL (31.0-37.0); MCV 90.8 fL (80.0-100.0); Mean Platelet Volume 7.3; Monocytes # (A) 0.6 k/uL (0-1.0); Monocytes % (A) 5 %; Neutrophils # (A) 8.1 k/uL (1.3-7.7); Neutrophils % (A) 74 %; Platelet Count 289 k/uL (150-450); RBC 4.57 m/uL (3.80-5.40); RDW 13.1 % (11.5-15.5); WBC 10.9 k/uL (3.8-10.6)
[2023-12-02] MEDS ORDERED: SODIUM CHLORIDE 0.9% 1,000 ML IV ONE (16:31)
[2023-12-02] MEDS ORDERED: ONDANSETRON 4 MG/2 ML VIAL IVP STA (16:31)
[2023-12-02 16:33] LABS: ALT 39 U/L (4-34); AST 37 U/L (14-36); African American GFR (CKD) >90 (>60 ml/min/1.73 sqM); Albumin 4.4 g/dL (3.5-5.0); Alkaline Phosphatase 62 U/L (38-126); Anion Gap 9 mmol/L; Blood Urea Nitrogen 19 mg/dL (7-17); Calcium 10.1 mg/dL (8.4-10.2); Carbon Dioxide 26 mmol/L (22-30); Chloride 104 mmol/L (98-107); Glucose 85 mg/dL (74-99); Lipase 121 U/L (23-300); Non-African American GFR(CKD) >90 (>60 ml/min/1.73 sqM); Sodium 139 mmol/L (137-145); Total Bilirubin 0.9 mg/dL (0.2-1.3); Total Protein 7.3 g/dL (6.3-8.2)
[2023-12-02 16:40] LABS: INR 0.9 (<1.2); Partial Thromboplastin Time 24.7 sec (22.0-30.0); Prothrombin Time 10.2 sec (10.0-12.5)
[2023-12-02 16:41] LABS: Potassium 4.2 mmol/L (3.5-5.1)
[2023-12-02] MEDS ORDERED: ONDANSETRON 4 MG ODT STARTER PACK 2 TAB BTL PO STA (16:50)
[2023-12-02 18:41] VITALS: BP 124/76; PULSE 62; RESP 18
== END 2023-12-02 18:30 | disposition home or self-care (01) ==
LOC: EC 14:36
DX: R11.10 Vomiting, unspecified (principal); M19.90 Unspecified osteoarthritis, unspecified site; E07.9 Disorder of thyroid, unspecified; F41.9 Anxiety disorder, unspecified; F32.A Depression, unspecified; Z79.890 Hormone replacement therapy; Z79.1 Long term (current) use of non-steroidal anti-inflammatories (NSAID); Z79.899 Other long term (current) drug therapy; Z88.6 Allergy status to analgesic agent; Z91.011 Allergy to milk products; Z91.018 Allergy to other foods; Z88.8 Allergy status to other drugs, medicaments and biological substances
CPT/HCPCS: 36415; 93005; 86900; 86901; 80053; 83605; 83690; 84484; 85025; 85610; 85730; 86850; 99284; 96374; 96361; J2405; S0119

== ENCOUNTER → 2024-09-15 | Outpatient (CLI) | payer MEDICARE, OTHER ==
--- NOTE | 2024-09-16 13:25 | BD ---
EXAMINATION TYPE: Axial Bone Density DATE OF EXAM: 09/15/2024 CLINICAL HISTORY: 64 years old Female. ICD-10 CODE: Z79.52 CHRONIC STEROID USE Height: 64 Weight: 195.5 FRAX RISK QUESTIONS: Alcohol (3 or more units per day): no Family History (Parent hip fracture): no Glucocorticoids (More than 3mos): no (Ex: prednisone, prednisolone, methylprednisolone, dexamethasone, and hydrocortisone). History of Fracture in Adulthood: yes Secondary Osteoporosis: 1. Type 1 Diabetes: no 2. Hyperthyroidism: no 3. Menopause before 45: no 4. Malnutrition: no 5. Chronic liver disease: no Rheumatoid Arthritis: no Current Tobacco Use: yes RISK FACTORS HISTORY OF: Surgery to Spine/Hip(right/left)/Wrist (right/left): no MEDICATIONS: Thyroid Medications: levothyroxine 88 mcg How Lon years EXAM MEASUREMENTS: Bone mineral densitometry was performed using the [employer] System. Bone mineral density as measured about the Lumbar spine is: ----- L1-L4(G/cm2): 1.037 T Score Values are as follows: ----- L1: -1.2 ----- L2: -1.1 ----- L3: -1.7 ----- L4: -1.0 ----- L1-L4: -1.2 Z Score Values are as follows: ----- L1: -0.6 ----- L2: -0.5 ----- L3: -1.1 ----- L4: -0.4 ----- L1-L4: -0.6 Bone mineral density has: decreased -2.9 % since study of: 12.26.2020 Bone mineral density about the R hip (g/cm2): 1.002 Bone mineral density about the L hip (g/cm2): 10..9 T Score values are as follows: -----R Neck: -0.3 -----L Neck: -0.7 -----R Total: 0.0 -----L Total: 0.0 Z Score values are as follows: -----R Neck: 0.6 -----L Neck: 0.1 -----R Total: 0.4 -----L Total: 0.5 Bone mineral density has: decreased -4.7 % since study of: 2..2020 FRAX%s: The graph provided illustrates a 11.5% chance for a major osteoporotic fx and a 0.5% chance f or the hips probability for fx in 10 years time. IMPRESSION: Osteopenia (T Score between -2.5 and -1). There is slightly increased risk of fracture and the patient may be considered for treatment. Re-Screen 2-5 years. NOTE: T-SCORE=SD OF THE YOUNG ADULT MEAN. [facility], , 09/16/2024 1:22 PM
--- NOTE | 2024-09-17 09:29 | MM ---
Reason for Exam: Screening (asymptomatic). Last mammogram was performed 2 year(s) and 5 month(s) ago. Patient History: Menarche at age 14. First Full-Term at age 18. Postmenopausal. Patient has history of breast feeding. Patient used Hormonal Contraceptives for 4 years. Sister had ovarian cancer at or over age 50. Risk Values: Riana 5 year model risk: 1.1%. NCI Lifetime model risk: 5.0%. Prior Study Comparison: 10/07/2019 Left Diagnostic Mammogram, [facility]. 05/30/2020 Bilateral Screening Mammogram, [facility]. 04/05/2022 Bilateral Screening Mammogram, [facility]. Tissue Density: The breasts are heterogeneously dense, which may obscure small masses. Findings: Analyzed By CAD. There is no suspicious group of microcalcifications in either breast. Asymmetric density upper central left breast 6 cm from the nipple. Additional views recommended. Overall Assessment: Incomplete: need additional imaging evaluation, BI-RAD 0 Management: Diagnostic Mammogram of the left breast. . Patient should continue monthly self-breast exams. A clinical breast exam by your physician is recommended on an annual basis. This exam should not preclude additional follow-up of suspicious palpable abnormalities. Note on Riana scores and lifetime risk: 1. A Riana score greater than 3% is considered moderate risk. If this is the case, consider specialist referral to assess eligibility for a risk reducing agent. 2. If overall lifetime risk for the development of breast cancer is 20% or higher, the patient may qualify for future screening with alternating mammogram and breast MRI. [facility], , 09/17/2024 9:26 AM. Electronically signed and approved by: Modesto Hubbard M.D. Radiologis
== END | disposition home or self-care (01) ==
LOC: RADMAMWWP 13:57
PROVIDERS: ATTEND Family Medicine
CPT/HCPCS: 77063; 77067; 77080

== ENCOUNTER → 2024-09-25 | Outpatient (CLI) | payer MEDICARE, OTHER ==
--- NOTE | 2024-09-25 15:23 | MM ---
Reason for Exam: Additional evaluation requested from abnormal screening. Last screening mammogram was performed less than 1 month ago. Patient History: Menarche at age 14. First Full-Term at age 18. Postmenopausal. Patient has history of breast feeding. Patient used Hormonal Contraceptives for 4 years. Sister had ovarian cancer at or over age 50. Risk Values: Riana 5 year model risk: 1.1%. NCI Lifetime model risk: 5.0%. Prior Study Comparison: 05/30/2020 Bilateral Screening Mammogram, [facility]. 04/05/2022 Bilateral Screening Mammogram, [facility]. 09/15/2024 Bilateral MG 3D screening mammo w/cad, [facility]. Tissue Density: Left: The breasts are heterogeneously dense, which may obscure small masses. Findings: Analyzed By CAD. There is an asymmetric density at the 9 to 10:00 position left breast middle which becomes less defined but incompletely disperses. Further ultrasound evaluation is recommended. Overall Assessment: Incomplete: need additional imaging evaluation, BI-RAD 0 Management: Diagnostic Breast Ultrasound of the left breast. [facility], , 09/25/2024 3:20 PM. Electronically signed and approved by: Yasmine Gustafson M.D. Radiologist
--- NOTE | 2024-09-25 15:25 | USB ---
Reason for Exam: Additional evaluation requested from prior study. Patient History: Menarche at age 14. First Full-Term at age 18. Postmenopausal. Patient has history of breast feeding. Patient used Hormonal Contraceptives for 4 years. Sister had ovarian cancer at or over age 50. Risk Values: Riana 5 year model risk: 1.1%. NCI Lifetime model risk: 5.0%. Technique: Method: Targeted. Prior Study Comparison: 05/30/2020 Bilateral Screening Mammogram, [facility]. 04/05/2022 Bilateral Screening Mammogram, [facility]. 09/15/2024 Bilateral MG 3D screening mammo w/cad, [facility]. Findings: The upper inner quadrant of the left breast, the axilla of the left breast and the retroareolar of the left breast were scanned. Targeted left breast 9-10 o'clock including scanning of the subareolar region and axilla. At the 9:00 position, 1 cm from the nipple, there is a benign 3 mm cyst, possible mammographic correlate. No other solid or cystic lesion or axillary lymphadenopathy. Overall Assessment: Probably benign, BI-RAD 3 Management: Diagnostic Mammogram of the left breast in 6 months. A clinical breast exam by your physician is recommended on an annual basis and results should be correlated with mammographic findings. This exam should not preclude additional follow-up of suspicious palpable abnormalities. Results were given to the patient verbally at the time of exam. [facility], , 09/25/2024 3:22 PM. Electronically signed and approved by: Yasmine Gustafson M.D. Radiologist
== END | disposition home or self-care (01) ==
LOC: RADMAMWWP 14:12
PROVIDERS: ATTEND Family Medicine
DX: R92.8 Other abnormal and inconclusive findings on diagnostic imaging of breast (principal); R92.333 Mammographic heterogeneous density, bilateral breasts; Z78.0 Asymptomatic menopausal state; Z80.41 Family history of malignant neoplasm of ovary; Z92.0 Personal history of contraception
CPT/HCPCS: 77065; 76642; G0279; 77061

== ENCOUNTER → 2025-04-07 | Outpatient (CLI) | payer MEDICARE, OTHER ==
--- NOTE | 2025-04-07 14:41 | MM ---
Reason for Exam: Follow-up at short interval from prior study. Last screening mammogram was performed 7 month(s) ago. Patient History: Menarche at age 14. First Full-Term at age 18. Postmenopausal. Patient has history of breast feeding. Patient used Hormonal Contraceptives for 4 years. Sister had ovarian cancer at or over age 50. Risk Values: Riana 5 year model risk: 1.1%. NCI Lifetime model risk: 5.0%. Prior Study Comparison: 04/05/2022 Bilateral Screening Mammogram, [facility]. 09/15/2024 Bilateral MG 3D screening mammo w/cad, [facility]. 09/25/2024 Left MG 3D work up w/cad , [facility]. Tissue Density: Left: The breasts are heterogeneously dense, which may obscure small masses. Findings: Analyzed By CAD. No suspicious new mass or cluster of microcalcifications in the left breast. Overall Assessment: Negative, BI-RAD 1 Management: Screening Mammogram of both breasts in 6 months. Return to routine follow-up. Results were given to the patient verbally at the time of exam. Patient should continue monthly self-breast exams. A clinical breast exam by your physician is recommended on an annual basis. This exam should not preclude additional follow-up of suspicious palpable abnormalities. Note on Riana scores and lifetime risk: 1. A Riana score greater than 3% is considered moderate risk. If this is the case, consider specialist referral to assess eligibility for a risk reducing agent. 2. If overall lifetime risk for the development of breast cancer is 20% or higher, the patient may qualify for future screening with alternating mammogram and breast MRI. [facility], , 04/07/2025 2:38 PM. Electronically signed and approved by: Mac Irizarry M.D.
== END | disposition home or self-care (01) ==
LOC: RADMAMWWP 14:18
PROVIDERS: ATTEND Family Medicine
DX: R92.8 Other abnormal and inconclusive findings on diagnostic imaging of breast (principal); R92.332 Mammographic heterogeneous density, left breast; Z78.0 Asymptomatic menopausal state; Z92.0 Personal history of contraception
CPT/HCPCS: 77065; G0279; 77061